=== PATIENT | male | born 1995 | race Caucasian/White ===

== ENCOUNTER 2021-09-15 13:29 | Emergency (ER) | payer MEDICAID ==
[~2021-09-15] VITALS: Ht 180.3 cm; Wt 117.3 kg
[2021-09-15 15:02] VITALS: BP 115/79
[2021-09-15] MEDS ORDERED: KETOROLAC TROMETHAMINE 30 MG/ML VIAL IVP ONE (15:15)
[2021-09-15] MEDS ORDERED: SODIUM CHLORIDE 0.9% 1,000 ML IV ONE (15:15)
== END 2021-09-15 17:20 | disposition home or self-care (01) ==
LOC: EMS 13:30
DX: T65.6X1A Toxic effect of paints and dyes, not elsewhere classified, accidental (unintentional), initial encounter (principal); R07.9 Chest pain, unspecified; Y92.89 Other specified places as the place of occurrence of the external cause
CPT/HCPCS: 71045; 93005; 96361; 96374; 99283; J1885; J7030